=== PATIENT | female | born 1965 | race Caucasian/White ===

== ENCOUNTER 2017-12-17 23:52 | Inpatient (IN) | payer OTHER, SELFPAY ==
[2017-12-18 00:30] LABS: #Basophils 0.1 thou/uL (0.0-0.2); #Lymphocytes 1.5 thou/uL (1.20-3.40); #Monocytes 0.4 thou/uL (0.11-0.59); #Neutrophils 10.2 thou/uL (1.40-6.50); %Basophils 0.9 % (0.0-1.0); %Eosinophils 0.2 % (0.0-10.0); %Monocytes 2.9 % (0.0-10.0); %Neutrophils 84.1 % (42.0-75.0); Mean Corpuscular HGB CONC 35.1 g/dL (32.0-36.0); Mean Corpuscular Hemoglobin 33.9 pg (27.0-31.0); Mean Corpuscular Volume 96.5 fl (81.0-99.0); Mean Platelet Volume 8.4 fL (7.4-10.4); Platelet Count 202 thou/uL (130-400); RBC Distribution Width 11.3 % (11.5-14.5); Red Blood Cell (RBC) Count 4.72 mill/uL (4.20-5.40); White Blood Cell (WBC) Count 12.1 thou/uL (4.8-10.8)
[2017-12-18] MEDS ORDERED: Pantoprazole 40 MG VIAL ONE (00:30)
[2017-12-18 00:34] LABS: Bilirubin Negative (Negative); Blood, Urine Negative (Negative); Clarity CLEAR (Clear); Glucose, Urine (Dipstick) Negative (Negative); Leukocyte Negative (Negative); Nitrite Negative (Negative); Protein, Urine (Dipstick) Negative (Neg-Trace); Urobilinogen 0.2 mg/dL (0.2-1.0)
[2017-12-18 00:35] LABS: Specific Gravity, Urine Greater than 1.060 (1.002-1.036)
[2017-12-18] MEDS ORDERED: HYDROcodone/Acetaminophen 5/325 mg Tablet PO PRN ×2 (02:26)
[2017-12-18] MEDS ORDERED: Ondansetron ODT 4 MG TAB SL PRN (02:26)
[2017-12-18] MEDS ORDERED: Ondansetron HCl/PF 4 MG/2 ML Vial IVP PRN (02:26)
[2017-12-18] MEDS ORDERED: Acetaminophen 325 MG TAB PO PRN ×2 (02:26→03:19)
[2017-12-18] MEDS ORDERED: Sodium Chloride 0.9% 1,000 ML IV SCH (02:27)
[2017-12-18 03:01] VITALS: BMI 22.8
[2017-12-18] MEDS ORDERED: Ondansetron ODT 4 MG TAB PO PRN (03:19)
[2017-12-18] MEDS ORDERED: Labetalol HCl 100 MG/20 ML VIAL SLOW IVP PRN (03:19)
[2017-12-18] MEDS ORDERED: Milk Of Magnesia 30 ML UDCUP PO PRN (03:19)
[2017-12-18] MEDS ORDERED: Zolpidem Tartrate 5 MG TAB PO PRN (03:19)
[2017-12-18] MEDS ORDERED: Chloraseptic Spray 180 ml Bottle PO PRN (03:19)
[2017-12-18] MEDS ORDERED: Loperamide HCl 2 MG CAP PO PRN (03:19)
[2017-12-18] MEDS ORDERED: Senokot 8.6 MG TAB PO PRN (03:19)
[2017-12-18] MEDS ORDERED: Artificial Tears 18 DROP/0.9 ML EA EYE PRN (03:19)
[2017-12-18] MEDS ORDERED: Sodium Chloride 0.65% Nasal 44 ML BOT EA NARE PRN (03:19)
[2017-12-18] MEDS ORDERED: Eucerin (Mineral Oil/Petrolatum,White) 30 gm Jar TOP PRN (03:19)
[2017-12-18] MEDS ORDERED: Mag-Al 1200 mg/1200 mg/30 ML UDCUP PO PRN (03:19)
[2017-12-18] MEDS ORDERED: Diabetic Tussin 200 MG/10 ML UDCUP PO PRN (03:19)
[2017-12-18] MEDS ORDERED: Loratadine 10 MG TAB PO PRN (03:19)
--- NOTE | 2017-12-18 04:15 | HP ---
PRIMARY CARE PHYSICIAN: [place] call. REASON FOR ADMISSION: Transfer from outside emergency room ([facility] Room) to our hospital for further evaluation of abdominal pain. HISTORY OF PRESENT ILLNESS: A 52-year-old female who has underlying history of COPD, hypertension, c hronic low back pain, restless leg syndrome and mitral valve prolapse, who initially went to [facility] Emergency Room for evaluation of abdominal pain, nausea, and vomiting. The patient's s ymptoms started in morning. She had several nausea and vomiting. She reports 5-6 times without any blood. She denies any hematemesis. She was having upper abdominal pain predominantly in periumbilic al as well as epigastric region. She was feeling bloated after food. She had good bowel movement ea rly this morning. Around noon time, she tried to eat bread and butter, but her symptoms was gotten w orse. Since then she did not have any passed gas and she was feeling crampy abdominal pain about 5/1 0 in intensity. The patient evaluated at local emergency room and she had CT of the abdomen and pelvis and suspected for partial small-bowel obstruction versus enteritis. Over there, the patient was given Rocephin and Flagyl, Zofran, IV fluids and subsequently, she was transferred to our hospital for higher level of care. The patient reports that she has similar type of problem in October of last year and she was tested for everything and everything came back normal. REVIEW OF SYSTEMS: Please see my HPI for pertinent positives and negatives. All other review of sys tems reviewed and negative except as mentioned in the HPI. Constitutional: Weight loss or gain, ability to conduct usual activities. Skin: Rash, itching. Eyes: Double vision, pain. ENT/Mouth: Nose bleeding, neck stiffness, pain, tenderness. Cardiovascular: Palpitations, dyspnea on exertion, orthopnea. Respiratory: Shortness of breath, wheezing, cough, hemoptysis, fever or night sweats. Gastrointestinal: Poor appetite, abdominal pain, heartburn, nausea, vomiting, constipation, or diarr hea. Genitourinary: Urgency, frequency, dysuria, nocturia. Musculoskeletal: Pain, swelling. Neurologic/Psychiatric: Anxiety, depression. Allergy/Immunologic: Skin rash, bleeding tendency. ALLERGIES: No known drug allergies. PAST MEDICAL HISTORY: History of cervical cancer, COPD, mitral valve prolapse, hypertension, chronic low back pain, restless leg syndrome, tobacco abuse disorder. SURGICAL HISTORY: LEEP procedure of cervix, tubal ligation, , cardiac catheterization, lapa roscopic cholecystectomy, thyroidectomy. SOCIAL HISTORY: The patient is smoking about half pack per day. She denies any alcohol or other ill icit drug abuse. FAMILY HISTORY: Positive for heart disease to her mother. PAST PSYCHIATRIC HISTORY: Reviewed and negative. CURRENT HOME MEDICATIONS: Prilosec OTC 20 mg p.o. daily. EMERGENCY ROOM COURSE: The patient is given Rocephin, Flagyl, IV fluid, Zofran. PHYSICAL EXAMINATION: VITAL SIGNS: On arrival to our emergency room, blood pressure 180/96, pulse 83, respiratory rate 16, temperature 98.8, saturation 98% on room air, weight 68.4 kilograms. GENERAL: The patient is currently alert, awake, no obvious acute distress. HEAD: Normocephalic, atraumatic. Eyes: Pupils round, reactive to light. Extraocular muscles intac t. ENT: Oropharynx within normal limits. Moist mucous membranes, no oral lesions, no pharyngeal erythe ma, no exudates. NECK: Supple, no JVD, no thyromegaly, no carotid bruit, no jugular venous distention. LUNGS: Clear to auscultation without any rhonchi or rales. CARDIAC: S1, S2 regular without any murmur. ABDOMEN: The patient does have epigastric tenderness, but soft and benign examination. No peritonea l sign, no guarding, no rigidity. Bowel sound present. No suprapubic tenderness. BACK: Unremarkable, no CVA tenderness. EXTREMITIES: Upper extremity passive movement of all joints are normal. Lower extremity, no edema. Good peripheral pulsation. SKIN: No skin rash. HEMATOLOGICAL: No lymphadenopathy. PSYCHIATRIC: Normal affect. NEUROLOGIC: Nonfocal examination. SIGNIFICANT LABORATORY: CBC: WBC 10.7, hemoglobin 16.1, platelets 187. Urine drug screen negative. Urinalysis: rbc 0-5, w bc 10-20, bacteria few. BMP: Sodium 141, potassium 4.1, chloride 105, carbon dioxide 24, calcium 9. 8, BUN 11, creatinine 0.8, glucose 120. LFT: AST 19, ALT 16, albumin 4.7, alkaline phosphatase 84, protein 8.2, globulin 3.5, bilirubin 0.8. CT of the abdomen and pelvis showed pancreas, spleen, adre nal gland, kidney, ureter normal. Mildly prominent fluid filled loops of small bowel in left upper q uadrant. Differential diagnosis, acute enteritis versus early small-bowel obstruction. CBC here, WBC 12.1, hemoglobin 16.0, platelets 202. Urinalysis high specific gravity. ASSESSMENT AND PLAN: 1. Epigastric abdominal pain. This patient has nausea, vomiting, diarrhea, and crampy abdominal denilson n. CT of the abdomen and pelvis showed mildly prominent fluid filled small bowel loops. At this poi nt, our differential diagnosis is partial small-bowel obstruction versus enteritis versus gastroenter itis. We will send stool for infection workup if the patient has diarrhea. We will control pain wit h morphine. This morning, we will do small bowel x-ray to rule out any obstruction. If there is no small-bowel obstruction, then we will consider GI evaluation if needed for upper and lower endoscopy evaluation. 2. Dehydration. The patient will be given IV fluid. We will keep her n.p.o. until diagnosis is damaris ar. If there is no obstruction, then we will start advancing diet from clear liquid to full liquid a nd regular diet. 3. Hypertension. We will use hydralazine and labetalol p.r.n. basis. Upon discharge, the patient w ill need antihypertensive medication and will start amlodipine 5 mg p.o. daily. 4. Chronic low back pain. We will control pain with morphine and [place] on p.r.n. basis. 5. History of mitral valve prolapse. 6. History of tobacco abuse disorder. Smoking cessation counseling given. Healthy lifestyle measur es discussed with the patient. 7. Deep venous thrombosis prophylaxis not needed because we are expecting discharge in 24 hours. 8. Gastrointestinal prophylaxis, Pepcid 20 mg IV b.i.d. 9. Code status: The patient is FULL CODE. The patient does not have any surrogate decision maker. Disposition plan based on clinical course. We are expecting patient's stay in hospital 24-48 hours. Plan of care discussed with the patient in detail.
[2017-12-18 05:06] LABS: #Basophils 0.1 thou/uL (0.0-0.2); #Monocytes 0.8 thou/uL (0.11-0.59); #Neutrophils 7.8 thou/uL (1.40-6.50); %Basophils 0.7 % (0.0-1.0); %Eosinophils 0.3 % (0.0-10.0); %Lymphocytes 25.9 % (21.0-51.0); %Monocytes 6.6 % (0.0-10.0); %Neutrophils 66.5 % (42.0-75.0); Hemoglobin 14.4 g/dL (12.0-16.0); Mean Corpuscular HGB CONC 34.4 g/dL (32.0-36.0); Mean Corpuscular Hemoglobin 33.1 pg (27.0-31.0); Mean Corpuscular Volume 96.2 fl (81.0-99.0); Mean Platelet Volume 8.3 fL (7.4-10.4); Platelet Count 174 thou/uL (130-400); RBC Distribution Width 11.3 % (11.5-14.5); Red Blood Cell (RBC) Count 4.34 mill/uL (4.20-5.40); White Blood Cell (WBC) Count 11.7 thou/uL (4.8-10.8)
[2017-12-18 05:30] LABS: Anion Gap 13 mmol/L (10-20); BUN (Urea Nitrogen) 8 mg/dL (9.8-20.1); Calc. Creatinine Clearance 92 mL/min (70-130); Carbon Dioxide 24 mmol/L (22-29); Chloride 106 mmol/L (98-107); Estimated GFR-MDRD 80; Glucose 94 mg/dL (70-105); Potassium 3.6 mmol/L (3.5-5.1); Sodium 139 mmol/L (136-145)
[2017-12-18] MEDS ORDERED: Ketorolac Tromethamine 30 MG/ML VIAL IVP SCH (06:00)
[2017-12-18] MEDS ORDERED: metroNIDAZOLE 500 MG in Premix Bag 1 BAG IVPB SCH (06:00)
[2017-12-18] MEDS: metroNIDAZOLE 500 MG in Premix Bag 1 BAG IVPB SCH ×3 (06:24→23:50)
[2017-12-18] MEDS: Sodium Chloride 0.9% 1,000 ML IV SCH ×3 (06:25→23:49)
[2017-12-18] MEDS: Morphine 5 MG/ML SYRINGE SLOW IVP PRN ×5 (07:29→23:56)
[2017-12-18] MEDS: Ondansetron HCl/PF 4 MG/2 ML Vial IVP PRN ×2 (07:31→13:18)
[2017-12-18] MEDS: Famotidine/PF 20 mg/2ml Vial SLOW IVP SCH ×2 (07:34→20:42)
[2017-12-18] MEDS: hydrALAZINE 20 MG/ML VIAL SLOW IVP PRN (07:40)
[2017-12-18] MEDS ORDERED: Morphine 4 MG/ML Carpuject SLOW IVP SCH (10:15)
[2017-12-18] MEDS ORDERED: Metoclopramide HCl 10 MG/2 ML VIAL IVP PRN (10:45)
[2017-12-18] MEDS ORDERED: MD-Gastroview 120 ML BOT ONE (14:39)
--- NOTE | 2017-12-18 15:03 | RAD ---
SMALL BOWEL SERIES: Date: 12/18/17 HISTORY: Partial small bowel obstruction. COMPARISON: None. FINDINGS/IMPRESSION: The patient was given oral contrast. The patient only tolerated half the normal dose and had vomited a large portion of the contrast. As the contrast extends to the small bowel, it becomes more dilute. No contrast is seen within the large bowel within 4.5 hours. This is likely due to obstruction. Given its dilution over time, continuing the examination even longer would not be beneficial. POS: [facility]
[2017-12-18] MEDS ORDERED: Lidocaine 2% Jelly 5 ML TUBE TOP SCH (16:15)
[2017-12-18] MEDS ORDERED: Benzocaine 20% Spray 60 ML CAN PO SCH (16:15)
[2017-12-18] MEDS ORDERED: Morphine 5 MG/ML SYRINGE SLOW IVP PRN (17:18)
[2017-12-18] MEDS ORDERED: Sodium Chloride 0.9% 10 ML ONE (17:59)
[2017-12-18] MEDS: Promethazine HCl 25 MG/ML VIAL SLOW IVP PRN ×2 (18:00→23:47)
[2017-12-19] MEDS: hydrALAZINE 20 MG/ML VIAL SLOW IVP PRN ×2 (04:12→12:49)
[2017-12-19] MEDS: Ondansetron HCl/PF 4 MG/2 ML Vial IVP PRN ×2 (04:16→10:18)
[2017-12-19 06:04] LABS: ALT (SGPT) 14 U/L (8-55); AST (SGOT) 13 U/L (5-34); Albumin 4.2 g/dL (3.5-5.0); Alkaline Phosphatase 77 U/L (40-150); Anion Gap 15 mmol/L (10-20); BUN (Urea Nitrogen) 7 mg/dL (9.8-20.1); Bilirubin, Total 0.9 mg/dL (0.2-1.2); Calc. Creatinine Clearance 97 mL/min (70-130); Calcium 9.1 mg/dL (7.8-10.44); Carbon Dioxide 21 mmol/L (22-29); Chloride 103 mmol/L (98-107); Estimated GFR-MDRD 85; Globulin 2.9 g/dL (2.4-3.5); Glucose 130 mg/dL (70-105); Potassium 3.4 mmol/L (3.5-5.1); Protein, Total 7.1 g/dL (6.0-8.3); Sodium 136 mmol/L (136-145)
[2017-12-19] MEDS ORDERED: Dextrose 5 %-0.45 % NaCl 1,000 ML IV SCH (08:00)
[2017-12-19] MEDS ORDERED: Potassium Chloride 40 MEQ, Admixture Fee 1 EACH in Sodium Chloride 0.9% 250 ML 250 ML IVPB SCH (08:00)
[2017-12-19] MEDS ORDERED: Potassium Chloride 40 MEQ in Premix Bag 1 BAG IVPB SCH (08:00)
[2017-12-19] MEDS: Famotidine/PF 20 mg/2ml Vial SLOW IVP SCH ×2 (08:29→22:23)
[2017-12-19] MEDS: metroNIDAZOLE 500 MG in Premix Bag 1 BAG IVPB SCH (08:29)
[2017-12-19] MEDS ORDERED: Lidocaine 2% Jelly 5 ML TUBE TOP SCH (09:15)
[2017-12-19] MEDS: Morphine 5 MG/ML SYRINGE SLOW IVP PRN ×2 (10:24→12:23)
--- NOTE | 2017-12-19 11:14 | RAD ---
ABDOMEN 2 VIEWS: HISTORY: Small bowel obstruction. FINDINGS: A nasogastric tube is present in the projection of the stomach and the left hemiabdomen. Multiple di fferential air fluid levels are present. No free air is seen. Small bowel loops are dilated. Findi ngs are suspicious for small bowel obstruction. POS: [facility]
--- NOTE | 2017-12-19 11:55 | PDOC.PN ---
- Subjective Encounter Start Date: 12/19/17 Encounter Start Time: 11:53 Subjective: No new complaints. Feels better this a.m. -: General Surgeon placed NG tube -: No acute events overnight. - Objective Resuscitation Status: Resuscitation Status FULL:Full Resuscitation MAR Reviewed: Yes Vital Signs & Weight: Vital Signs (12 hours) Temp Pulse Resp BP BP Pulse Ox 12/19/17 08:00 98.5 F 109 H 20 160/93 H 97 12/19/17 06:58 170/78 H 12/19/17 04:25 99.0 F 92 20 12/19/17 04:12 92 198/93 H 12/19/17 00:30 98.6 F 92 18 156/88 H Weight Weight 149 lb 14.629 oz I&O: 12/18/17 12/19/17 12/20/17 06:59 06:59 06:59 Intake Total 556 1300 Output Total 300 Balance 556 1000 Result Diagrams: 12/18/17 04:45 12/19/17 05:27 Phys Exam - Physical Examination Constitutional: NAD HEENT: PERRLA, moist MMs, sclera anicteric NG tube in-situ Neck: supple, full ROM Respiratory: no wheezing, no rales, no rhonchi, clear to auscultation bilateral Cardiovascular: RRR, no significant murmur, no rub Gastrointestinal: soft, non-tender hypoactive BS Musculoskeletal: no edema, pulses present Neurological: non-focal, moves all 4 limbs Psychiatric: normal affect, A&O x 3 Skin: no rash, normal turgor Dx/Plan (1) Small bowel obstruction Code(s): K56.609 - UNSP INTESTNL OBST, UNSP TO PARTIAL VERSUS COMPLETE OBST Status: Acute Comment: Stable. NG tube placed NPO General Surgeon on board, recs appreciated. (2) COPD (chronic obstructive pulmonary disease) Status: Acute Qualifiers: COPD type: unspecified COPD Qualified Code(s): J44.9 - Chronic obstructive pulmonary disease, unspecified Comment: sTABLE, NOT IN ACUTE EXACERBATION. nebs PRN (3) Chronic low back pain Code(s): M54.5 - LOW BACK PAIN; G89.29 - OTHER CHRONIC PAIN Status: Chronic Qualifiers: Back pain laterality: midline Sciatica presence: unspecified whether sciatica present Qualified Code(s): M54.5 - Low back pain; G89.29 - Other chronic pain; G89.29 - Other chronic pain Comment: Ensure adequate pain control (4) HTN (hypertension) Code(s): I10 - ESSENTIAL (PRIMARY) HYPERTENSION Status: Acute Qualifiers: Hypertension type: essential hypertension Qualified Code(s): I10 - Essential (primary) hypertension Comment: Not at goal as pt is NPO and unable to take jose meds. On Labetalol kalpana Hydralazine IV PRN with parameters. (5) MVP (mitral valve prolapse) Code(s): I34.1 - NONRHEUMATIC MITRAL (VALVE) PROLAPSE Status: Chronic Comment: Unchanged. Monitor. - Plan cont current plan of care, out of bed/ambulate * .
[2017-12-19] MEDS ORDERED: Succinylcholine Chloride 20 MG/ML 10 ml SYRINGE FS ONE (12:40)
[2017-12-19] MEDS ORDERED: Glycopyrrolate 0.2 MG/ML 5 ML SYRINGE ONE (12:40)
[2017-12-19] MEDS ORDERED: Dexamethasone 20 MG/5 ML VIAL ONE (12:40)
[2017-12-19] MEDS ORDERED: PROPOFOL 200 MG/20 ML VIAL ONE (12:40)
[2017-12-19] MEDS ORDERED: PHENYLEPHRINE-NS 100 MCG/ML 10 ML SYRINGE ONE (12:40)
[2017-12-19] MEDS ORDERED: diphenhydrAMINE 50 MG/ML VIAL ONE (12:40)
[2017-12-19] MEDS ORDERED: Ondansetron HCl/PF 4 MG/2 ML Vial ONE (12:40)
[2017-12-19] MEDS ORDERED: Metoprolol Tartrate 25 MG TAB PO SCH (12:45)
[2017-12-19] MEDS ORDERED: Bupivacaine 0.25% HCL 30 ML VIAL ONE ×2 (12:53→13:12)
[2017-12-19] MEDS ORDERED: Lidocaine 1% w/Epinephrine 1:200K 30 ML VIAL ONE ×2 (12:53→13:12)
--- NOTE | 2017-12-19 12:54 | CON ---
DATE OF CONSULTATION: 12/19/2017 CHIEF COMPLAINT: Abdominal pain and nausea. HISTORY: Ms. Morrissey is a 52-year-old woman who presented to her local ER with abdominal pain, nausea and vomiting. She had a CT there which showed some dilated proximal small bowel loops concerning for an obstruction. Attempts were made at NG tube placement which were unsuccessful and traumatic causing a large amount of bleeding from the patient's nose. She was transferred to [place] and admitted. Her primary team ordered a Gastrografin small bowel follow through which did not show any passage of contrast and the patient had multiple episodes of nausea and vomiting with this. Her nurses tried again with lidocaine jelly and Hurricaine [place] to pass an NG tube, but were unable to get it through the nose. Her nausea and pain subsided yesterday evening and when I came by to see her, she was sleeping, so I did not wake her. We decided to let the swelling in her nose go down overnight and try again this morning to pass an NG-tube. When I saw her this morning, she was having intermittent episodes of crampy abdominal pain and some nausea, although it was not as bad as yesterday. An NG tube was able to be successfully placed and about 500 mL of bilious fluid was obtained. Since that time, the patient has continued, however, to have episodes of crampy abdominal pain. These do not seem to be improving and she has not had any additional output from her NG although there was successful return of flush. She is still not passing any gas and the episodes of pain seems to be if anything more severe. PAST MEDICAL HISTORY: Hypertension, COPD, hyperlipidemia. PAST SURGICAL HISTORY: Tubal ligation, , laparoscopic cholecystectomy , thyroidectomy, LEEP and cardiac catheterization. SOCIAL HISTORY: She does smoke half pack a day. She does not drink or use illicit drugs. FAMILY HISTORY: Heart disease in her mother. REVIEW OF SYSTEMS: Ten system review of systems is negative except per HPI. The patient denies any fevers or chills. She had 1 similar episode of abdominal pain and nausea back in mid October, but an extensive workup including CT scan at that time was normal. PHYSICAL EXAMINATION: VITAL SIGNS: Temperature 99, heart rate 109, respirations 20, blood pressure elevated at 160/93. GENERAL: Reveals a healthy appearing woman in minimal distress when I first saw her, but with episodes of pain she is in moderate to severe distress. She is not flushed or toxic, jaundiced or icteric in appearance. NECK: Supple, without lymphadenopathy or thyroid nodules. HEART: Regular in its rhythm, slightly tachycardic. LUNGS: Lungs have occasional wheezes, but otherwise clear. ABDOMEN: Soft, slightly distended. Bowel sounds are diminished and she has diffuse mild tenderness. Healed surgical incisions. No palpable masses or hernias. No rigidity, rebound or guarding. EXTREMITIES: Warm and well perfused without edema. NEUROLOGIC: No focal deficits. PSYCHIATRIC: Alert, oriented, and appropriate. LABORATORY DATA: White count is mildly elevated at 11.7, hematocrit 41.8, platelets 174. Electrolytes are unremarkable. Potassium is slightly low at 3.4 this morning. Small bowel follow through x-ray showed residual contrast in the dilated small bowel about 4.5 hours with no passage into the colon. A plain film of the abdomen after placement of the NG tube still does not show any definite contrast in the colon. ASSESSMENT: Small-bowel obstruction complicated by inability to pass NG tube for the first 36 hours of her hospital stay. Since her pain is quite severe and is not improving and we have not had any more NG return after the initial 500 mL, I suspect she may have an competent pylorus and that further NG decompression is unlikely to be helpful. I have recommended that we proceed to the operating room. The patient is in agreement with this plan. We will attempt to do this with a hand-assisted laparoscopic technique. An open surgery may be necessary. If there has been damage to the bowel from the obstruction, then a small bowel resection may be necessary. Inherent risks of the surgery were discussed with the patient. These include, but are not limited to bleeding, infection, risks of anesthesia, damage to bowel or blood vessels, anastomotic leak and need for other surgery. She understands and accepts these risks and wishes to proceed. [place]
[2017-12-19] MEDS ORDERED: HYDROmorphone 0.5 MG/0.5 ML SYRINGE ONE (13:26)
[2017-12-19] MEDS ORDERED: Fentanyl 100 MCG/2 ML VIAL ONE (13:26)
[2017-12-19] MEDS ORDERED: cefOXitin 2 GM VIAL ONE (13:49)
[2017-12-19] MEDS ORDERED: diphenhydrAMINE 50 MG/ML VIAL IM PRN (15:35)
[2017-12-19] MEDS ORDERED: Fentanyl 5000 MCG/250 ML CADD IVPB PRN ×2 (15:35→16:11)
[2017-12-19] MEDS ORDERED: diphenhydrAMINE 25 MG CAP PO PRN (15:35)
[2017-12-19] MEDS ORDERED: Promethazine HCl 25 MG/ML VIAL SLOW IVP PRN (15:35)
[2017-12-19] MEDS ORDERED: Ondansetron HCl/PF 4 MG/2 ML Vial IVP PRN ×2 (15:35)
[2017-12-19] MEDS ORDERED: Zolpidem Tartrate 5 MG TAB PO PRN (15:35)
[2017-12-19] MEDS ORDERED: diphenhydrAMINE 50 MG/ML VIAL IVP PRN (15:35)
[2017-12-19] MEDS ORDERED: Naloxone HCl 0.4 mg/ml Vial IV PRN (15:35)
[2017-12-19] MEDS ORDERED: Promethazine HCl 25 MG/ML VIAL IM PRN ×2 (15:35)
[2017-12-19] MEDS ORDERED: Communication Order-Pharmacy FS SCH (15:45)
[2017-12-19] MEDS ORDERED: Fentanyl CADD 250 ML ONE (16:00)
[2017-12-19] MEDS ORDERED: fentaNYL Citrate/PF 2,000 MCG in Sodium Chloride 0.9% 60 ML IV PRN (16:00)
[2017-12-19] MEDS ORDERED: Cepastat Lozenges 1 LOZ PO PRN (17:21)
[2017-12-19] MEDS ORDERED: Chloraseptic Spray 180 ml Bottle PO PRN (17:22)
[2017-12-19] MEDS: Sodium Chloride 0.9% 1,000 ML IV SCH (18:09)
[2017-12-20] MEDS: Sodium Chloride 0.9% 1,000 ML IV SCH ×2 (00:42→16:48)
[2017-12-20] MEDS: Montelukast Sodium 10 mg Tablet PO SCH ×2 (01:02→21:15)
[2017-12-20 05:44] LABS: #Lymphocytes 2.5 thou/uL (1.20-3.40); #Monocytes 1.5 thou/uL (0.11-0.59); #Neutrophils 10.9 thou/uL (1.40-6.50); %Basophils 0.2 % (0.0-1.0); %Eosinophils 0.1 % (0.0-10.0); %Lymphocytes 16.4 % (21.0-51.0); %Monocytes 9.9 % (0.0-10.0); %Neutrophils 73.4 % (42.0-75.0); Hemoglobin 12.8 g/dL (12.0-16.0); Mean Corpuscular HGB CONC 34.5 g/dL (32.0-36.0); Mean Corpuscular Hemoglobin 33.2 pg (27.0-31.0); Mean Corpuscular Volume 96.4 fl (81.0-99.0); Mean Platelet Volume 8.9 fL (7.4-10.4); Platelet Count 150 thou/uL (130-400); RBC Distribution Width 11.3 % (11.5-14.5); Red Blood Cell (RBC) Count 3.85 mill/uL (4.20-5.40); White Blood Cell (WBC) Count 14.9 thou/uL (4.8-10.8)
[2017-12-20 05:53] LABS: Anion Gap 10 mmol/L (10-20); BUN (Urea Nitrogen) 12 mg/dL (9.8-20.1); Calc. Creatinine Clearance 98 mL/min (70-130); Calcium 8.3 mg/dL (7.8-10.44); Carbon Dioxide 27 mmol/L (22-29); Chloride 107 mmol/L (98-107); Estimated GFR-MDRD 86; Glucose 93 mg/dL (70-105); Potassium 3.3 mmol/L (3.5-5.1); Sodium 141 mmol/L (136-145)
[2017-12-20] MEDS ORDERED: Potassium Chloride 20 MEQ/100 ML PREMIX BAG IVPB SCH (07:30)
[2017-12-20] MEDS: Famotidine/PF 20 mg/2ml Vial SLOW IVP SCH ×2 (10:02→21:15)
[2017-12-20] MEDS: Potassium Chloride 20 MEQ, Admixture Fee 1 EACH in Sodium Chloride 0.9% 250 ML 250 ML IVPB SCH ×2 (10:03→18:15)
[2017-12-20] MEDS: Metoprolol Tartrate 25 MG TAB PO SCH (10:04)
[2017-12-20] MEDS ORDERED: Nitroglycerin 0.4 MG TAB (25 Tab Bottle) SL PRN (10:54)
--- NOTE | 2017-12-20 13:10 | PDOC.PN ---
- Subjective Encounter Start Date: 12/20/17 Encounter Start Time: 13:08 Subjective: Feels better. Still not passing flatus. -: No acute events overnight. - Objective Resuscitation Status: Resuscitation Status FULL:Full Resuscitation MAR Reviewed: Yes Vital Signs & Weight: Vital Signs (12 hours) Temp Pulse Resp BP Pulse Ox 12/20/17 11:40 99.1 F 79 20 170/85 H 12/20/17 08:00 98.6 F 87 20 160/85 H 93 L 12/20/17 03:50 99.2 F 93 20 171/87 H 95 Weight Weight 149 lb 14.629 oz I&O: 12/19/17 12/20/17 12/21/17 06:59 06:59 06:59 Intake Total 1300 3845 Output Total 300 2220 Balance 1000 1625 Result Diagrams: 12/20/17 04:39 12/20/17 04:39 Phys Exam - Physical Examination Constitutional: NAD HEENT: PERRLA, moist MMs, sclera anicteric NG tube in place, disconnected from suction. Neck: supple, full ROM Respiratory: no wheezing, no rales, no rhonchi, clear to auscultation bilateral Cardiovascular: RRR, no significant murmur, no rub + systolic murmur. Gastrointestinal: soft, non-tender, no distention hypoactive bowel sounds Dx/Plan (1) Small bowel obstruction Code(s): K56.609 - UNSP INTESTNL OBST, UNSP TO PARTIAL VERSUS COMPLETE OBST Status: Acute Comment: Stable. NG tube placed Remains strictly NPO General Surgeon on board, recs appreciated. Might proceed to OR to relieve obstruction. (2) COPD (chronic obstructive pulmonary disease) Status: Acute Qualifiers: COPD type: unspecified COPD Qualified Code(s): J44.9 - Chronic obstructive pulmonary disease, unspecified Plan: Continue bronchodilators therapy. Comment: sTABLE, NOT IN ACUTE EXACERBATION. nebs PRN (3) Chronic low back pain Code(s): M54.5 - LOW BACK PAIN; G89.29 - OTHER CHRONIC PAIN Status: Chronic Qualifiers: Back pain laterality: midline Sciatica presence: unspecified whether sciatica present Qualified Code(s): M54.5 - Low back pain; G89.29 - Other chronic pain; G89.29 - Other chronic pain Plan: Stable. At baseline. Comment: Ensure adequate pain control (4) HTN (hypertension) Code(s): I10 - ESSENTIAL (PRIMARY) HYPERTENSION Status: Acute Qualifiers: Hypertension type: essential hypertension Qualified Code(s): I10 - Essential (primary) hypertension Plan: Hydralazine PRN Comment: Not at goal as pt is NPO and unable to take jose meds. On Labetalol kalpana Hydralazine IV PRN with parameters. (5) MVP (mitral valve prolapse) Code(s): I34.1 - NONRHEUMATIC MITRAL (VALVE) PROLAPSE Status: Chronic Comment: Unchanged. Monitor. - Plan cont current plan of care General surgery to review today. -: COntinue current management -: Ensure adequate BP control. * .
[2017-12-21] MEDS: Sodium Chloride 0.9% 1,000 ML IV SCH ×5 (00:23→20:14)
--- NOTE | 2017-12-21 03:02 | PRG ---
DATE OF SERVICE: 12/20/2017 SUBJECTIVE: Ms. Morrissey is feeling better today. She is having some incisional pain but this is tolerable. She is not nauseated; she has not yet passed any gas. OBJECTIVE: Vital signs are stable. Urine output has been good. Her appetite is diminished. Blood pressure is running little high. Abdomen is soft and less tender than yesterday. Incisions are clean. There is a little bruising around the incision. Bowel sounds are present but diminished. LABORATORY DATA: White count is 14, hematocrit 37, and platelets 150. Electrolytes are unremarkable. Potassium is a little low, but replacement of potassium was ordered by her Medicine doctor. ASSESSMENT: Small bowel obstruction, status post hand assisted laparoscopic small bowel resection and lysis of adhesions. She appears to be recovering well. Her NG tube was discontinued, and liquids are ordered. MTDD
[2017-12-21] MEDS: Potassium Chloride 20 MEQ, Admixture Fee 1 EACH in Sodium Chloride 0.9% 250 ML 250 ML IVPB SCH (04:04)
[2017-12-21 06:28] LABS: #Basophils 0.1 thou/uL (0.0-0.2); #Eosinphils 0.1 thou/uL (0.0-0.7); #Lymphocytes 2.4 thou/uL (1.20-3.40); #Neutrophils 6.5 thou/uL (1.40-6.50); %Basophils 0.7 % (0.0-1.0); %Eosinophils 1.4 % (0.0-10.0); %Lymphocytes 23.5 % (21.0-51.0); %Monocytes 9.7 % (0.0-10.0); %Neutrophils 64.6 % (42.0-75.0); Hemoglobin 13.4 g/dL (12.0-16.0); Mean Corpuscular HGB CONC 34.8 g/dL (32.0-36.0); Mean Corpuscular Hemoglobin 33.4 pg (27.0-31.0); Mean Platelet Volume 8.4 fL (7.4-10.4); Platelet Count 144 thou/uL (130-400); RBC Distribution Width 10.9 % (11.5-14.5); Red Blood Cell (RBC) Count 4.01 mill/uL (4.20-5.40); White Blood Cell (WBC) Count 10.1 thou/uL (4.8-10.8)
[2017-12-21 06:41] LABS: Anion Gap 10 mmol/L (10-20); BUN (Urea Nitrogen) 8 mg/dL (9.8-20.1); Calc. Creatinine Clearance 106 mL/min (70-130); Calcium 8.2 mg/dL (7.8-10.44); Carbon Dioxide 27 mmol/L (22-29); Chloride 104 mmol/L (98-107); Estimated GFR-MDRD Greater than 90; Glucose 84 mg/dL (70-105); Potassium 3.3 mmol/L (3.5-5.1); Sodium 138 mmol/L (136-145)
--- NOTE | 2017-12-21 06:43 | OP ---
DATE OF PROCEDURE: 12/19/2017 PREOPERATIVE DIAGNOSIS: Small-bowel obstruction. POSTOPERATIVE DIAGNOSIS: Small-bowel obstruction with early stricture formation. HISTORY: Ms. Morrissey is a 52-year-old woman who presented to the hospital with signs and symptoms of small-bowel obstruction. This was confirmed by CT scan and due to lack of improvement after gastric decompression, recommendation was made to proceed to the operating room due to severe pain. DESCRIPTION OF PROCEDURE: After informed consent was obtained and appropriate preoperative antibiotics were administered, the patient was taken to the operating room where she was placed in supine position and general endotracheal anesthesia was administered. She was prepped and draped in a standard sterile fashion and local anesthesia infused to the skin and subcutaneous tissues at the level of the umbilicus. A transverse umbilical incision was made and the fascia incised in the midline. The peritoneum was identified and cut and the peritoneal cavity opened and there were no visible adhesions on the region of the umbilicus. A trocarwas placed into the abdominal cavity and carbon dioxide gas insufflated to an intra-abdominal pressure of 15, which the patient tolerated well. The opening pressure was less than 5. The scope was advanced into the abdominal cavity. There was some blood-tinged fluid in the pelvis and some congested-appearing loops of bowel in the left upper quadrant partially obscured by omentum. Dissecting trocars were placed and bilateral lower quadrants under direct vision of the laparoscope and attempts made to mobilize the omentum, but dense adhesions to the fallopian tubes at the location of the patient's previous tubal ligations were noted. There was difficulty visualizing this area, and the decision was made to place a hand port. The umbilical trocar was removed and the incision extended superiorly and inferiorly to create a 6 cm incision. A GelPort was placed. The omental adhesions taken down from the fallopian tubes, no bowel involvement was seen. Once the omentum was able to be mobilized, the congested loops of bowel in the left upper quadrant were seen to be herniated beneath a tight band between the omentum and the mesentery which was compressing on the bowel, and this was divided using LigaSure. The bowel was hemorrhagic and congested in appearance but appeared to be potentially viable. Attention was turned to running the bowel proximal and distal to this adhesion. No other areas of obstruction was found and the patient was incidentally noted to have a broad-based diverticulum at the jejunum which was non-inflamed and normal in appearance. The congested loop of bowel rapidly improved in its appearance after division of the adhesive band; however, there is one area where the bowel was tightly compressed that was not returning to its normal appearance. This area was not returning to its normal caliber and it was felt that it was in the process of early stricture formation from the adhesive compression. Therefore, the decision was made to resect this, along with the more congested bowel proximal to that point of obstruction. The normal-appearing bowel proximal and distal to this area was brought together with a Lembert suture. Enterotomies were created and a staple [id number] functional end-to-end anastomosis was created. A transverse fire of the stapler was then used to close the bowel transversely, excluding the enterotomies and the abnormal segment of bowel. The mesentery was divided using LigaSure and the specimen was passed from the table. The angle of sorrow was reinforced with 3-0 silk suture and the transverse staple line was inverted with Lembert sutures and the mesentery was closed with a suture as well and bowel returned to its normal anatomic position. The unprepped colon was grossly normal to palpation. The appendix was normal to appearance. The abdominal cavity was irrigated to clear. The omentum was drawn down over the intestine and the dissecting trocars removed under direct vision and hemostasis verified. The gelport was removed and Seprafilm placed. The fascia was closed under direct vision with 0 PDS suture with excellent technical result. The subcutaneous tissues were irrigated and the skin closed with a running subcuticular Monocryl suture. The laparoscopic trocar sites were also closed with 4-0 Monocryl suture. Dermabond dressings were placed. The patient was extubated and taken back to the recovery room in good condition. Estimated blood loss was minimal. There were no complications. Specimen is small bowel. MTDD
[2017-12-21] MEDS: Metoprolol Tartrate 25 MG TAB PO SCH (08:57)
[2017-12-21] MEDS: Famotidine/PF 20 mg/2ml Vial SLOW IVP SCH (08:58)
[2017-12-21] MEDS ORDERED: HYDROcodone/Acetaminophen 5/325 mg Tablet PO PRN (10:46)
--- NOTE | 2017-12-21 12:46 | PDOC.PN ---
- Subjective Encounter Start Date: 12/21/17 Encounter Start Time: 12:44 Subjective: No complaints today. -: Taken to OR yesterday for surgery w anastomosis - Objective Resuscitation Status: Resuscitation Status FULL:Full Resuscitation Vital Signs & Weight: Vital Signs (12 hours) Temp Pulse Resp BP Pulse Ox 12/21/17 11:59 98.0 F 73 20 136/84 12/21/17 08:00 97.9 F 88 20 185/88 H 96 12/21/17 04:00 99.0 F 85 18 169/81 H Weight Weight 149 lb 14.629 oz I&O: 12/20/17 12/21/17 12/22/17 06:59 06:59 06:59 Intake Total 3845 4350 Output Total 2220 3400 Balance 1625 950 Result Diagrams: 12/21/17 06:10 12/21/17 06:10 Phys Exam - Physical Examination Constitutional: NAD HEENT: PERRLA, moist MMs, sclera anicteric Neck: no nodes, no JVD, supple, full ROM Respiratory: no wheezing, no rales, no rhonchi, clear to auscultation bilateral Cardiovascular: RRR, no significant murmur, no rub Gastrointestinal: soft, non-tender, no distention, positive bowel sounds Musculoskeletal: no edema, pulses present Neurological: non-focal, moves all 4 limbs Psychiatric: normal affect, A&O x 3 Skin: no rash, normal turgor Dx/Plan (1) Small bowel obstruction Code(s): K56.609 - UNSP INTESTNL OBST, UNSP TO PARTIAL VERSUS COMPLETE OBST Status: Acute Comment: Stable. NG tube placed General Surgeon on board- pt s/p procedure w anastomosis. Doing much better, tolerating meals. (2) COPD (chronic obstructive pulmonary disease) Status: Acute Qualifiers: COPD type: unspecified COPD Qualified Code(s): J44.9 - Chronic obstructive pulmonary disease, unspecified Comment: Not in acute exacerbation. Continur\e bronchidilator therapy. (3) Chronic low back pain Code(s): M54.5 - LOW BACK PAIN; G89.29 - OTHER CHRONIC PAIN Status: Chronic Qualifiers: Back pain laterality: midline Sciatica presence: unspecified whether sciatica present Qualified Code(s): M54.5 - Low back pain; G89.29 - Other chronic pain; G89.29 - Other chronic pain Comment: Ensure adequate pain control (4) HTN (hypertension) Code(s): I10 - ESSENTIAL (PRIMARY) HYPERTENSION Status: Acute Qualifiers: Hypertension type: essential hypertension Qualified Code(s): I10 - Essential (primary) hypertension Comment: Improving. Home regimen restarted. (5) MVP (mitral valve prolapse) Code(s): I34.1 - NONRHEUMATIC MITRAL (VALVE) PROLAPSE Status: Chronic Comment: Unchanged. Monitor. - Plan cont current plan of care * .
--- NOTE | 2017-12-21 15:41 | PRG ---
DATE OF SERVICE: 12/21/2017 Ms. Morrissey is feeling better today. She is tolerating a soft diet without nausea. She has had liq uid bowel movements and is passing gas. Her abdominal pain is mostly incisional and is managed by th e CERTIFED REFRIGERATION OPERATOR. Her abdomen is soft and nondistended. Her incisions are healing well. There is some bruisin g at the midline incision which is stable. Bowel sounds are present. Her jennifer-incisional tenderness is slightly improved. ASSESSMENT: Status post small bowel resection for small-bowel obstruction, doing well overall. She is tolerating advancement of diet. I am going to stop her CERTIFED REFRIGERATION OPERATOR and switch her to oral medications. I f she tolerates that, I expect that she will be ready to go home in the next 24 hours or so.
[2017-12-21] MEDS: Potassium Chloride 20 MEQ TAB PO SCH (17:11)
[2017-12-21] MEDS: HYDROcodone/Acetaminophen 5/325 mg Tablet PO PRN (17:11)
[2017-12-21] MEDS: Famotidine 20 MG TAB PO SCH (20:15)
[2017-12-21] MEDS: Montelukast Sodium 10 mg Tablet PO SCH (20:15)
[2017-12-22] MEDS: Sodium Chloride 0.9% 1,000 ML IV SCH (02:57)
[2017-12-22] MEDS: HYDROcodone/Acetaminophen 5/325 mg Tablet PO PRN (06:19)
[2017-12-22 06:51] LABS: #Basophils 0.1 thou/uL (0.0-0.2); #Eosinphils 0.3 thou/uL (0.0-0.7); #Lymphocytes 2.6 thou/uL (1.20-3.40); #Monocytes 0.8 thou/uL (0.11-0.59); #Neutrophils 5.7 thou/uL (1.40-6.50); %Basophils 0.9 % (0.0-1.0); %Eosinophils 3.7 % (0.0-10.0); %Lymphocytes 27.5 % (21.0-51.0); %Monocytes 7.8 % (0.0-10.0); %Neutrophils 60.1 % (42.0-75.0); Hemoglobin 13.5 g/dL (12.0-16.0); Mean Corpuscular HGB CONC 34.4 g/dL (32.0-36.0); Mean Corpuscular Hemoglobin 32.8 pg (27.0-31.0); Mean Corpuscular Volume 95.3 fl (81.0-99.0); Mean Platelet Volume 8.7 fL (7.4-10.4); Platelet Count 159 thou/uL (130-400); RBC Distribution Width 11.1 % (11.5-14.5); Red Blood Cell (RBC) Count 4.12 mill/uL (4.20-5.40); White Blood Cell (WBC) Count 9.5 thou/uL (4.8-10.8)
[2017-12-22 07:16] LABS: Anion Gap 9 mmol/L (10-20); BUN (Urea Nitrogen) 5 mg/dL (9.8-20.1); Calc. Creatinine Clearance 114 mL/min (70-130); Calcium 8.4 mg/dL (7.8-10.44); Carbon Dioxide 27 mmol/L (22-29); Chloride 106 mmol/L (98-107); Estimated GFR-MDRD Greater than 90; Glucose 93 mg/dL (70-105); Potassium 3.1 mmol/L (3.5-5.1); Sodium 139 mmol/L (136-145)
[2017-12-22] MEDS: Metoprolol Tartrate 25 MG TAB PO SCH (08:31)
[2017-12-22] MEDS: Famotidine 20 MG TAB PO SCH (08:31)
[2017-12-22] MEDS: Potassium Chloride 20 MEQ TAB PO SCH (08:32)
[2017-12-22 12:04] VITALS: BP 165/79; TEMP 98
--- NOTE | 2017-12-23 06:20 | DIS ---
DATE OF ADMISSION: 12/18/2017 DATE OF DISCHARGE: 12/22/2017 DISCHARGE DIAGNOSIS: Small-bowel obstruction. SECONDARY DIAGNOSES: Chronic obstructive pulmonary disease, hypertension, chronic lower back pain, r estless leg syndrome, mitral valve prolapse. HOSPITAL COURSE: A 57-year-old female who presented to the emergency room for evaluation of abdomina l pain, nausea, and vomiting which started earlier that morning. She had several episodes up to 5-6 times without hematemesis. Pain was located in the upper abdomen, periumbilical, as well as epigastr ic region. It was associated with bloating. She initially reported good bowel movement but around n oon, she said she had not passed any gas and was feeling crampy with about 5/10 abdominal pain in int ensity. At the local emergency room, she had a CT abdomen and pelvis which showed suspected partial small-bowel obstruction versus enteritis. She was given Rocephin, Flagyl, Zofran, IV fluids, and was transferred to [facility] Emergency Room. In the course of her hospital stay, she was evaluated b y General Surgery who took her to the OR for small bowel resection. Initially before surgery, NG tub e was placed to decompress the stomach. She tolerated procedure well and was soon able to tolerate m eals and her diet was advanced until she was able to eat her regular meals. Her blood pressure was c ontrolled with parenteric medications until she was able to eat whereby her home regimen was resumed. DISCHARGE MEDICATIONS: Gabapentin 900 mg p.o. t.i.d., hydrocodone 5 mg/325 mg tablets 1-2 tablets p. o. q.4 hours p.r.n. for pain, metoprolol tartrate 25 mg p.o. daily, montelukast sodium 10 mg p.o. at bedtime, omeprazole 20 mg p.o. daily, sennosides 8.6 mg tablets 2 tablets p.o. at bedtime p.r.n. for constipation. PHYSICAL EXAMINATION: She was examined on the day of discharge. CONSTITUTIONAL: Not in acute distress. VITAL SIGNS: Stable. HEENT: PERRLA. Moist mucous membranes. Sclerae are anicteric. NECK: No nodes. No JVD. Supple. Full range of motion. RESPIRATORY: No wheezing, rales or rhonchi. LUNGS: Clear to auscultation bilaterally. CARDIOVASCULAR: Regular rate and rhythm with no significant murmurs or rubs. GASTROINTESTINAL: Soft, nontender, no distention with positive bowel sounds. MUSCULOSKELETAL: No edema or pulses present. NEUROLOGIC: Nonfocal. Moves all limbs spontaneously. PSYCHIATRIC: Normal affect. Alert and oriented x3. SKIN: No rash. Normal turgor. Warm and well perfused. LABORATORY DATA: She had low potassium level of 3.1, which was replenished orally. CBC and CMP othe rwise unremarkable. CONSULTATION: General Surgery. IMAGING: Abdomen x-ray to confirm nasogastric tube. Findings showed nasogastric tube present in the projection of the stomach and left phuong-abdomen. Multiple differential air fluid levels are present . No free air seen. Small bowel loops are dilated. Findings are suspicious for small-bowel obstruc tion. Small bowel x-ray. Patient was given oral contrast, the patient only tolerated and had vomited a large portion of the contrast. As the contrast extends to the small bowel, it became more dilute. No contrast is seen in the large bowel within 4.5 hours. This is likely due to obstruction. Given the dilution over time, continuing the examination even longer would not be beneficial. CONDITION AT DISCHARGE: Stable and improved. PROCEDURE: Small bowel resection with anastomosis. DIET: Heart-healthy diet. CARE GOALS: To follow up with General Surgery in 2 weeks' time. She is also to follow up with her [facility] physician within 1 week of discharge. Activity as directed by General Surgery. She is n ot to lift any weights greater than 20 pounds until her appointment with General Surgery. Time of discharge including chart review documentation 65 minutes.
--- NOTE | 2018-02-20 21:22 | EKG ---
Test Reason : Blood Pressure : / mmHG Vent. Rate : 081 BPM Atrial Rate : 081 BPM P-R Int : 134 ms QRS Dur : 086 ms QT Int : 366 ms P-R-T Axes : 057 056 037 degrees QTc Int : 425 ms Normal sinus rhythm Normal ECG No previous ECGs available Confirmed by DOMONIQUE MCBRIDE M.D. ([id number] on 02/20/2018 9:22:24 PM Referred By: RAÚL Confirmed By:DOMONIQUE MCBRIDE M.D.
== END 2017-12-22 13:33 | disposition home or self-care (01) | DRG 331 ==
LOC: ERS 23:52 → OBSVTOIN 12-18 02:05 → 3SE 12-18 02:05
PROVIDERS: ADMIT Internal Medicine; ATTEND Internal Medicine
PROC: 0DB80ZZ Excision of Small Intestine, Open Approach (ICD-10-PCS; principal; 2017-12-20)
PROC: 0DN80ZZ Release Small Intestine, Open Approach (ICD-10-PCS; 2017-12-20)
DX: K56.50 Intestinal adhesions [bands], unspecified as to partial versus complete obstruction (principal); E78.5 Hyperlipidemia, unspecified; E86.0 Dehydration; F17.210 Nicotine dependence, cigarettes, uncomplicated; G25.81 Restless legs syndrome; I10 Essential (primary) hypertension; J44.9 Chronic obstructive pulmonary disease, unspecified; M54.5 Low back pain; I34.1 Nonrheumatic mitral (valve) prolapse; Z85.41 Personal history of malignant neoplasm of cervix uteri; G89.29 Other chronic pain; R33.9 Retention of urine, unspecified
CPT/HCPCS: 36415; 74019; 74250; 80048; 80053; 81003; 85025; 87045; 87046; 87086; 87328; 87329; 87449; 87899; 88307; 93005; 93010; 96374; 96375; J2270; A4216; C9113; J0360; J0694; J0744; J1100; J1170; J1200; J2405; J2550; J2704; J2765; J3010; J3480; J7050; S0020; S0028

== ENCOUNTER 2017-12-30 16:23 | Emergency (ER) | payer SELFPAY ==
[2017-12-30 18:40] LABS: #Basophils 0.1 thou/uL (0.0-0.2); #Eosinphils 0.2 thou/uL (0.0-0.7); #Lymphocytes 3.1 thou/uL (1.20-3.40); #Monocytes 0.6 thou/uL (0.11-0.59); #Neutrophils 4.8 thou/uL (1.40-6.50); %Basophils 1.2 % (0.0-1.0); %Eosinophils 2.4 % (0.0-10.0); %Lymphocytes 35.4 % (21.0-51.0); %Monocytes 6.4 % (0.0-10.0); %Neutrophils 54.6 % (42.0-75.0); Hemoglobin 14.4 g/dL (12.0-16.0); Mean Corpuscular HGB CONC 33.7 g/dL (32.0-36.0); Mean Corpuscular Hemoglobin 32.9 pg (27.0-31.0); Mean Corpuscular Volume 97.6 fl (81.0-99.0); Mean Platelet Volume 7.8 fL (7.4-10.4); Platelet Count 254 thou/uL (130-400); Red Blood Cell (RBC) Count 4.37 mill/uL (4.20-5.40); White Blood Cell (WBC) Count 8.7 thou/uL (4.8-10.8)
[2017-12-30 19:05] LABS: ALT (SGPT) 17 U/L (8-55); AST (SGOT) 12 U/L (5-34); Albumin 4.2 g/dL (3.5-5.0); Alkaline Phosphatase 78 U/L (40-150); Anion Gap 17 mmol/L (10-20); BUN (Urea Nitrogen) 7 mg/dL (9.8-20.1); Bilirubin, Total 0.5 mg/dL (0.2-1.2); Calc. Creatinine Clearance 0 mL/min (70-130); Calcium 9.7 mg/dL (7.8-10.44); Carbon Dioxide 28 mmol/L (22-29); Chloride 102 mmol/L (98-107); Estimated GFR-MDRD 74; Globulin 3.1 g/dL (2.4-3.5); Glucose 96 mg/dL (70-105); Potassium 3.6 mmol/L (3.5-5.1); Protein, Total 7.3 g/dL (6.0-8.3); Sodium 143 mmol/L (136-145)
== END 2017-12-30 19:11 | disposition left against medical advice (07) ==
LOC: ERS 16:23
DX: Z53.21 Procedure and treatment not carried out due to patient leaving prior to being seen by health care provider (principal)
CPT/HCPCS: 80053; 85025